=== PATIENT | female | born 1950 | race Caucasian/White ===

== ENCOUNTER 2016-10-16 14:19 | Inpatient (IN) | payer MEDICARE, OTHER ==
[~2016-10-16] VITALS: Ht 165.1 cm; Wt 102.8 kg
[~2016-10-16 14:19] MED LIST: ATOR40TA78 PO; CALC-534 PO; CHOL200074 PO; GABA300C10 PO; LEVO25TA4 PO; MELO15TA24 PO; METO50TA82 PO; NITR0.4T28 SL; OMEG-14 PO; SERT50TA5 PO; VALS320T2 PO; VIT1TABL32 PO; ZOLP5TAB6 PO
[2016-10-16] MEDS ORDERED: SODIUM CHLORIDE 0.9% 1,000ML IVBOLUS ONE (15:00)
[2016-10-16] MEDS ORDERED: SODIUM CHLORIDE FLUSH 10ML SYR IVF ONE (15:00)
[2016-10-16 15:44] LABS: HEMATOCRIT 34.6 % (34.6-47.8); HEMOGLOBIN 11.4 g/dL (11.7-16.4); WHITE BLOOD COUNT 9.8 x10^3/uL (3.4-10)
[2016-10-16 15:57] LABS: ASPARTATE AMINO TRANSFERASE 15 U/L (15-37); BLOOD UREA NITROGEN 39 mg/dL (7-18)
[2016-10-16] MEDS ORDERED: HYDR-3237 PO (16:12)
[2016-10-16] MEDS ORDERED: ONDANSETRON 2MG/ML, 2ML IVPush ONE (16:30)
[2016-10-16] MEDS ORDERED: MORPHINE SULFATE 4 MG/ML, 1ML IVPush PRN (16:30)
[2016-10-16] MEDS ORDERED: MORPHINE SULFATE 4 MG/ML, 1ML ONE (16:38)
[2016-10-16] MEDS ORDERED: ONDANSETRON 2MG/ML, 2ML ONE (16:38)
[2016-10-16] MEDS ORDERED: FAMOTIDINE 20 MG/2 ML ONE (16:54)
[2016-10-16] MEDS ORDERED: MAALOX/HYOSCYAMINE/LIDOCAINE 45 ML BTL ONE (16:54)
[2016-10-16] MEDS ORDERED: MAALOX/HYOSCYAMINE/LIDOCAINE 45 ML BTL PO ONE (17:00)
[2016-10-16] MEDS ORDERED: FAMOTIDINE 20 MG/2 ML IVPush ONE (17:00)
[2016-10-16] MEDS ORDERED: LORazepam 1MG TABLET PO PRN ×4 (18:00)
[2016-10-16] MEDS ORDERED: morphine SULFATE 10 MG/ML, 1ML IVPush PRN (18:00)
[2016-10-16] MEDS ORDERED: LABETALOL 5MG/ML, 20ML IVPush PRN (18:00)
[2016-10-16] MEDS ORDERED: LORazepam 0.5MG TABLET PO PRN (18:00)
[2016-10-16] MEDS ORDERED: POLYETHYLENE GLYCOL 17 GM PACKET PO PRN (18:00)
[2016-10-16] MEDS ORDERED: LORazepam 2 MG/ML, 1ML IV PRN ×5 (18:00)
[2016-10-16] MEDS ORDERED: ONDANSETRON ODT 4 MG PO PRN (18:00)
[2016-10-16] MEDS ORDERED: ONDANSETRON 2MG/ML, 2ML IVPush PRN (18:00)
[2016-10-16 18:02] LABS: HEMATOCRIT 33.2 % (34.6-47.8); HEMOGLOBIN 10.8 g/dL (11.7-16.4); WHITE BLOOD COUNT 8.4 x10^3/uL (3.4-10)
[2016-10-16 18:12] LABS: TOTAL IRON BINDING CAPACITY 311 mcg/dL (250-450)
[2016-10-16 18:21] LABS: IS PT STATUS REG ER OR PRE ER? YES
[2016-10-16] MEDS ORDERED: PANTOPRAZOLE 80 MG in SODIUM CHLORIDE 0.9% 50 ML IV ONE (19:00)
[2016-10-16] MEDS: SODIUM CHLORIDE 0.9% 1,000 ML IV SCH (21:01)
[2016-10-16] MEDS: PANTOPRAZOLE 80 MG in SODIUM CHLORIDE 0.9% 100 ML IV SCH (21:02)
[2016-10-16] MEDS: CHOLECALCIFEROL 1,000 UNIT TABLET PO SCH (22:29)
[2016-10-16] MEDS: GABAPENTIN 300 MG CAPSULE PO SCH (22:29)
[2016-10-16] MEDS: METOPROLOL TARTRATE 50 MG TABLET PO SCH (22:29)
[2016-10-16] MEDS: ATORVASTATIN 40 MG TABLET PO SCH (22:29)
[2016-10-16 22:54] VITALS: BP 175/91
[2016-10-16 23:45] LABS: PATH.CAST-FLAG NOT PRESENT; SPERM-FLAG NOT PRESENT; SRC-FLAG NOT PRESENT; XTAL-FLAG NOT PRESENT; YLC-FLAG NOT PRESENT
[2016-10-16 23:50] LABS: POTASSIUM,URINE RANDOM 18 mmol/L
[2016-10-16 23:51] LABS: IS PT STATUS REG ER OR PRE ER? NO
[2016-10-17 01:12] LABS: OCCBLD OBC PASS
[2016-10-17 02:19] VITALS: BP 110/68
[2016-10-17] MEDS: SODIUM CHLORIDE 0.9% 1,000 ML IV SCH ×3 (02:51→17:50)
[2016-10-17 04:42] LABS: HEMATOCRIT 29.4 % (34.6-47.8); HEMOGLOBIN 9.6 g/dL (11.7-16.4); WHITE BLOOD COUNT 6.7 x10^3/uL (3.4-10)
[2016-10-17 04:59] LABS: BLOOD UREA NITROGEN 29 mg/dL (7-18)
[2016-10-17 05:04] LABS: ASPARTATE AMINO TRANSFERASE 16 U/L (15-37)
[2016-10-17] MEDS: LEVOTHYROXINE 25 MCG TABLET PO SCH (06:02)
[2016-10-17] MEDS: HYDROcodone/APAP 5/325 TABLET PO PRN ×2 (06:08→17:49)
[2016-10-17] MEDS: PANTOPRAZOLE 80 MG in SODIUM CHLORIDE 0.9% 100 ML IV SCH (06:33)
[2016-10-17 07:18] VITALS: BP 154/79
[2016-10-17] MEDS: CHOLECALCIFEROL 1,000 UNIT TABLET PO SCH ×2 (10:09→22:35)
[2016-10-17] MEDS: CALCIUM/VITAMIN D3 250-125 TABLET PO SCH (10:09)
[2016-10-17] MEDS: METOPROLOL TARTRATE 50 MG TABLET PO SCH ×2 (10:09→22:36)
[2016-10-17] MEDS: SENNA/DOCUSATE TABLET PO SCH (10:10)
[2016-10-17] MEDS: GABAPENTIN 300 MG CAPSULE PO SCH ×2 (10:10→22:36)
[2016-10-17] MEDS: SERTRALINE 50MG TABLET PO SCH (10:10)
[2016-10-17] MEDS: NITROGLYCERIN 0.4 MG BOTTLE (25 TABS) SL SCH (10:11)
[2016-10-17] MEDS: TEMPLATE NON-FORMULARY MED. (Vit A,C & E/Lutein/Minerals** (Ocuvite Tablet**) 1 TAB) PO SCH (10:11)
[2016-10-17 12:16] VITALS: BP 132/73
[2016-10-17] MEDS: PANTOPROZOLE 40MG TABLET PO SCH ×2 (12:32→22:37)
[2016-10-17 20:06] VITALS: BP 167/78
[2016-10-17] MEDS: ATORVASTATIN 40 MG TABLET PO SCH (22:37)
[2016-10-18 01:28] VITALS: BP 157/93
[2016-10-18] MEDS: SODIUM CHLORIDE 0.9% 1,000 ML IV SCH ×2 (03:37→14:16)
[2016-10-18 05:42] LABS: HEMATOCRIT 29.7 % (34.6-47.8); HEMOGLOBIN 9.7 g/dL (11.7-16.4); WHITE BLOOD COUNT 6.4 x10^3/uL (3.4-10)
[2016-10-18 05:56] LABS: ASPARTATE AMINO TRANSFERASE 20 U/L (15-37); BLOOD UREA NITROGEN 18 mg/dL (7-18)
[2016-10-18] MEDS: LEVOTHYROXINE 25 MCG TABLET PO SCH (06:12)
[2016-10-18] MEDS: HYDROcodone/APAP 5/325 TABLET PO PRN ×3 (06:17→21:58)
[2016-10-18 07:30] VITALS: BP 150/88
[2016-10-18] MEDS: PANTOPROZOLE 40MG TABLET PO SCH ×2 (07:59→21:58)
[2016-10-18] MEDS: METOPROLOL TARTRATE 50 MG TABLET PO SCH ×2 (07:59→21:00)
[2016-10-18] MEDS: CHOLECALCIFEROL 1,000 UNIT TABLET PO SCH ×2 (07:59→21:57)
[2016-10-18] MEDS: GABAPENTIN 300 MG CAPSULE PO SCH ×2 (07:59→21:58)
[2016-10-18] MEDS: CALCIUM/VITAMIN D3 250-125 TABLET PO SCH (07:59)
[2016-10-18] MEDS: NITROGLYCERIN 0.4 MG BOTTLE (25 TABS) SL SCH (08:00)
[2016-10-18] MEDS: SERTRALINE 50MG TABLET PO SCH (08:00)
[2016-10-18] MEDS: SENNA/DOCUSATE TABLET PO SCH (08:00)
[2016-10-18] MEDS: TEMPLATE NON-FORMULARY MED. (Vit A,C & E/Lutein/Minerals** (Ocuvite Tablet**) 1 TAB) PO SCH (08:01)
[2016-10-18 14:18] VITALS: BP 148/86
[2016-10-18] MEDS ORDERED: POTASSIUM CHLORIDE 20 MEQ, MAGNESIUM SULFATE 1 GM, FOLIC ACID 1 MG, THIAMINE 100 MG, MV... IV SCH (15:30)
[2016-10-18 20:10] VITALS: BP 168/81
[2016-10-18] MEDS: ATORVASTATIN 40 MG TABLET PO SCH (21:58)
[2016-10-18] MEDS ORDERED: ZOLPIDEM 5MG TABLET PO ONE (22:00)
[2016-10-19 01:47] VITALS: BP 170/91
[2016-10-19] MEDS: SODIUM CHLORIDE 0.9% 1,000 ML IV SCH ×2 (01:58→12:36)
[2016-10-19 05:30] LABS: HEMATOCRIT 30.7 % (34.6-47.8); HEMOGLOBIN 10.1 g/dL (11.7-16.4); WHITE BLOOD COUNT 6.8 x10^3/uL (3.4-10)
[2016-10-19] MEDS: LEVOTHYROXINE 25 MCG TABLET PO SCH (05:30)
[2016-10-19] MEDS: HYDROcodone/APAP 5/325 TABLET PO PRN ×2 (05:34→10:29)
[2016-10-19 05:57] LABS: ASPARTATE AMINO TRANSFERASE 15 U/L (15-37); BLOOD UREA NITROGEN 14 mg/dL (7-18)
[2016-10-19 06:38] VITALS: BP 156/75
[2016-10-19] MEDS: GABAPENTIN 300 MG CAPSULE PO SCH (08:04)
[2016-10-19] MEDS: NITROGLYCERIN 0.4 MG BOTTLE (25 TABS) SL SCH (08:05)
[2016-10-19] MEDS: SENNA/DOCUSATE TABLET PO SCH (08:05)
[2016-10-19] MEDS: CHOLECALCIFEROL 1,000 UNIT TABLET PO SCH (08:05)
[2016-10-19] MEDS: PANTOPROZOLE 40MG TABLET PO SCH (08:05)
[2016-10-19] MEDS: METOPROLOL TARTRATE 50 MG TABLET PO SCH (08:05)
[2016-10-19] MEDS: SERTRALINE 50MG TABLET PO SCH (08:05)
[2016-10-19] MEDS: TEMPLATE NON-FORMULARY MED. (Vit A,C & E/Lutein/Minerals** (Ocuvite Tablet**) 1 TAB) PO SCH (08:05)
[2016-10-19] MEDS: CALCIUM/VITAMIN D3 250-125 TABLET PO SCH (08:05)
[2016-10-19] MEDS ORDERED: THIA100T10 PO (09:43)
[2016-10-19] MEDS ORDERED: FOLI-17 PO (09:44)
[2016-10-19 12:50] VITALS: BP 170/73
== END 2016-10-19 14:40 | disposition home or self-care (01) | DRG 682 ==
LOC: ED 16:21 → EDIP 16:50 → 4WST 18:45
PROVIDERS: ADMIT Hospitalist; ATTEND Hospitalist
DX: N17.0 Acute kidney failure with tubular necrosis (principal); E43 Unspecified severe protein-calorie malnutrition; E87.2 Acidosis; K29.20 Alcoholic gastritis without bleeding; D53.9 Nutritional anemia, unspecified; F10.20 Alcohol dependence, uncomplicated; Z68.37 Body mass index [BMI] 37.0-37.9, adult; E03.9 Hypothyroidism, unspecified; E78.5 Hyperlipidemia, unspecified; F17.210 Nicotine dependence, cigarettes, uncomplicated; I10 Essential (primary) hypertension; I25.10 Atherosclerotic heart disease of native coronary artery without angina pectoris; K21.9 Gastro-esophageal reflux disease without esophagitis; K76.0 Fatty (change of) liver, not elsewhere classified; G62.9 Polyneuropathy, unspecified; G89.29 Other chronic pain; M54.30 Sciatica, unspecified side; E83.42 Hypomagnesemia; Z88.0 Allergy status to penicillin; Z80.8 Family history of malignant neoplasm of other organs or systems; Z83.3 Family history of diabetes mellitus; Z90.49 Acquired absence of other specified parts of digestive tract; Z66 Do not resuscitate
CPT/HCPCS: 36415; 76700; 80053; 81001; 82272; 82436; 82570; 82607; 82728; 82746; 83036; 83540; 83550; 83690; 83735; 84100; 84133; 84300; 84439; 84443; 84484; 85025; 85610; 85651; 87086; 87324; 96361; 96374; J3411; J3475; J3480; J7042; C9113; J7030; S0028

== ENCOUNTER 2017-03-01 05:42 | Inpatient (IN) | payer MEDICARE, OTHER ==
[~2017-03-01] VITALS: Ht 165.1 cm; Wt 98.6 kg
[~2017-03-01 05:42] MED LIST changes: +FOLI-17 PO; +HYDR-3237 PO; +THIA100T10 PO
[2017-03-01] MEDS ORDERED: ONDANSETRON 2MG/ML, 2ML ONE (05:47)
[2017-03-01] MEDS ORDERED: SODIUM CHLORIDE FLUSH 10ML SYR IVF ONE (06:00)
[2017-03-01] MEDS ORDERED: hydrALAzine 20 MG/ML, 1ML ONE (06:06)
[2017-03-01 06:21] LABS: BASOPHILS # (AUTO) 0.04 x10^3/uL (0-0.1); BASOPHILS % (AUTO) 0 % (0-1); EOSINOPHILS # (AUTO) 0.29 x10^3/uL (0-0.4); EOSINOPHILS % (AUTO) 3 % (1-7); LYMPHOCYTES # (AUTO) 2.33 x10^3/uL (1-3.4); LYMPHOCYTES % (AUTO) 24 % (22-44); MD NO; MONOCYTES # (AUTO) 0.94 x10^3/uL (0.2-0.8); MONOCYTES % (AUTO) 10 % (2-9); NEUTROPHILS # (AUTO) 6.13 x10^3/uL (1.8-6.8); NEUTROPHILS % (AUTO) 63 % (42-75); PLATELET COUNT 320 x10^3/uL (130-400)
[2017-03-01] MEDS ORDERED: FENTANYL PF 100 MCG/2ML ONE (06:25)
[2017-03-01 06:28] LABS: INTERNATIONAL NORMALIZED RATIO 0.94 (0.93-1.1); PROTHROMBIN TIME 9.8 Seconds (9.6-11.5)
[2017-03-01] MEDS ORDERED: hydrALAzine 20 MG/ML, 1ML IV ONE ×2 (06:30→07:00)
[2017-03-01] MEDS ORDERED: ONDANSETRON 2MG/ML, 2ML IVPush ONE (06:30)
[2017-03-01 06:32] LABS: ALBUMIN 3.6 g/dL (3.4-5.0); ANION GAP 10 mmol/L (5-15); CALCIUM 9.3 mg/dL (8.5-10.1); CHLORIDE 109 mmol/L (98-107)
[2017-03-01 06:35] LABS: TROPONIN I < 0.015 ng/mL (0.000-0.045)
[2017-03-01] MEDS ORDERED: VIT1TABL32 PO (06:43)
[2017-03-01] MEDS ORDERED: OMEG-14 PO (06:43)
[2017-03-01] MEDS ORDERED: LEVO25TA4 PO (06:43)
[2017-03-01] MEDS ORDERED: GABA300C10 PO (06:43)
[2017-03-01] MEDS ORDERED: CHOL2000 PO (06:43)
[2017-03-01] MEDS ORDERED: CA C1TAB35 PO (06:43)
[2017-03-01] MEDS ORDERED: OMEP-110 PO (06:43)
[2017-03-01] MEDS ORDERED: ATOR40TA78 PO (06:43)
[2017-03-01] MEDS ORDERED: HYDR-3237 PO (06:43)
[2017-03-01] MEDS ORDERED: SERT50TA PO (06:43)
[2017-03-01] MEDS ORDERED: VALS320T2 PO (06:43)
[2017-03-01] MEDS ORDERED: FOLI0.8T2 PO (06:43)
[2017-03-01] MEDS ORDERED: METO50TA82 PO (06:43)
[2017-03-01] MEDS ORDERED: SUCCINYLCHOLINE 20 MG/ML, 10ML IVPush ONE (07:00)
[2017-03-01] MEDS ORDERED: FENTANYL PF 100 MCG/2ML IV ONE (07:00)
[2017-03-01] MEDS ORDERED: MIDAZOLAM 1 MG/ML, 5ML IVPush ONE (07:00)
[2017-03-01] MEDS ORDERED: PROPOFOL 100 ML IV PRN ×2 (07:00→11:10)
[2017-03-01] MEDS ORDERED: ETOMIDATE 20 MG/10 ML IVPush ONE (07:00)
[2017-03-01] MEDS ORDERED: CEFTRIAXONE PMX 1GM/50ML 50 ML IVPB ONE (08:30)
[2017-03-01] MEDS ORDERED: BACITRACIN 50,000 UNIT ONE (09:20)
[2017-03-01] MEDS ORDERED: EPINEPHRINE 1 MG/ML, 1ML ONE (09:20)
[2017-03-01] MEDS ORDERED: BUPIVACAINE/PF 0.5% ONE (09:20)
[2017-03-01] MEDS ORDERED: THROMBIN 5,000 UNIT VIAL TP ONE (09:20)
[2017-03-01] MEDS ORDERED: OMNIPAQUE 350 MG/ML, 100ML BOTTLE ONE (09:23)
[2017-03-01] MEDS ORDERED: FENTANYL PF 250 MCG/5ML ONE (09:25)
[2017-03-01] MEDS ORDERED: THROMBIN 20,000 UNIT VIAL TP ONE (09:28)
[2017-03-01 09:33] VITALS: BP 113/64
[2017-03-01] MEDS ORDERED: CEFAZOLIN 1,000 MG ONE (09:40)
[2017-03-01] MEDS ORDERED: SODIUM CHLORIDE 0.9% 1,000 ML IV SCH (09:44)
[2017-03-01] MEDS ORDERED: ONDANSETRON 2MG/ML, 2ML IVPush PRN (10:00)
[2017-03-01] MEDS ORDERED: LABETALOL 5MG/ML, 20ML IVPush PRN (10:00)
[2017-03-01] MEDS ORDERED: morphine SULFATE 10 MG/ML, 1ML IVPush PRN (10:00)
[2017-03-01] MEDS ORDERED: POLYETHYLENE GLYCOL 17 GM PACKET PO PRN (10:00)
[2017-03-01] MEDS ORDERED: LORazepam 2 MG/ML, 1ML IVPush PRN (10:00)
[2017-03-01] MEDS ORDERED: PROPOFOL 10 MG/ML, 20ML ONE ×2 (11:19)
[2017-03-01] MEDS ORDERED: ROCURONIUM 10 MG/ML,10ML ONE (11:19)
[2017-03-01] MEDS ORDERED: ETOMIDATE 40 MG/20 ML ONE (11:19)
[2017-03-01] MEDS ORDERED: MIDAZOLAM 1 MG/ML, 5ML ONE (11:19)
[2017-03-01] MEDS ORDERED: LIDOCAINE-MPF 1%, 2ML ENDO PRN (11:30)
[2017-03-01] MEDS ORDERED: SENNA/DOCUSATE TABLET NG PRN (11:30)
[2017-03-01] MEDS ORDERED: BISACODYL 10 MG SUPP PR PRN (11:30)
[2017-03-01] MEDS ORDERED: LACTULOSE 20 GM/30 ML UDC NG PRN (11:30)
[2017-03-01] MEDS ORDERED: PHARMACY MAY ADJ FOR RENAL FX MC SCH (11:30)
[2017-03-01] MEDS ORDERED: SENNOSIDES 8.8 MG/5 ML ORAL SOL NG PRN (11:30)
[2017-03-01] MEDS ORDERED: CEFTRIAXONE PMX 1GM/50ML 50 ML IV SCH (12:00)
[2017-03-01] MEDS: ALBUTEROL/IPRATROPIUM 2.5MG/0.5MG, 3 ML INLINE SCH ×4 (12:00→23:30)
[2017-03-01] MEDS: PROPOFOL 100 ML IV PRN ×3 (14:27→22:41)
[2017-03-01] MEDS: D5%-0.9% NACL+KCL 20MEQ 1,000 ML IV SCH (14:27)
[2017-03-01] MEDS: METRONIDAZOLE PMX 500MG/100ML 100 ML IV SCH ×2 (14:32→21:14)
[2017-03-01] MEDS: CEFTRIAXONE 1,000 MG in DEXTROSE 5% 50 ML IV SCH (16:26)
[2017-03-01] MEDS: GABAPENTIN 300 MG CAPSULE PO SCH (21:15)
[2017-03-01] MEDS: FAMOTIDINE 20 MG/2 ML IVPush SCH (21:15)
[2017-03-01] MEDS: ATORVASTATIN 40 MG TABLET PO SCH (21:15)
[2017-03-01] MEDS: METOPROLOL TARTRATE 50 MG TABLET PO SCH (21:16)
[2017-03-02] MEDS: PROPOFOL 100 ML IV PRN ×4 (02:20→18:35)
[2017-03-02] MEDS: ALBUTEROL/IPRATROPIUM 2.5MG/0.5MG, 3 ML INLINE SCH ×6 (03:30→22:45)
[2017-03-02 04:33] LABS: BASOPHILS # (AUTO) 0.01 x10^3/uL (0-0.1); BASOPHILS % (AUTO) 0 % (0-1); EOSINOPHILS % (AUTO) 0 % (1-7); LYMPHOCYTES # (AUTO) 0.52 x10^3/uL (1-3.4); LYMPHOCYTES % (AUTO) 4 % (22-44); MD NO; MEAN CORPUSCULAR HEMOGLOBIN 32.7 pg (27.0-34.8); MEAN CORPUSCULAR HGB CONC 33.4 g/dL (32.4-35.8); MEAN CORPUSCULAR VOLUME 97.8 fL (80-100); MEAN PLATELET VOLUME 7.7 fL (7.4-10.4); MONOCYTES # (AUTO) 1.35 x10^3/uL (0.2-0.8); MONOCYTES % (AUTO) 10 % (2-9); NEUTROPHILS # (AUTO) 11.99 x10^3/uL (1.8-6.8); NEUTROPHILS % (AUTO) 86 % (42-75); PLATELET COUNT 258 x10^3/uL (130-400); RED BLOOD COUNT 3.22 x10^6/uL (3.82-5.3); RED CELL DISTRIBUTION WIDTH 15.8 % (9.6-15.2)
[2017-03-02 04:49] LABS: ALANINE AMINOTRANSFERASE 19 U/L (12-78); ALBUMIN 2.7 g/dL (3.4-5.0); ANION GAP 9 mmol/L (5-15); CALCIUM 7.4 mg/dL (8.5-10.1); CHLORIDE 112 mmol/L (98-107); CREATININE 1.01 mg/dL (0.55-1.02)
[2017-03-02 04:52] LABS: ALKALINE PHOSPHATASE 64 U/L (45-117); BILIRUBIN,TOTAL 0.3 mg/dL (0.2-1.0)
[2017-03-02] MEDS: METRONIDAZOLE PMX 500MG/100ML 100 ML IV SCH ×3 (05:33→20:27)
[2017-03-02] MEDS: D5%-0.9% NACL+KCL 20MEQ 1,000 ML IV SCH (05:35)
[2017-03-02] MEDS: ACETAMINOPHEN 325 MG TABLET PO PRN ×2 (06:17→13:12)
[2017-03-02] MEDS: METOPROLOL TARTRATE 50 MG TABLET PO SCH ×2 (09:00→21:13)
[2017-03-02] MEDS: VALSARTAN 320 MG TABLET PO SCH (09:00)
[2017-03-02] MEDS ORDERED: MAGNESIUM SULFATE PMX 4GM/100M 100 ML IVPB ONE (09:00)
[2017-03-02] MEDS: LEVOTHYROXINE 25 MCG TABLET PO SCH (09:12)
[2017-03-02] MEDS: SENNA/DOCUSATE TABLET PO SCH (09:12)
[2017-03-02] MEDS: FAMOTIDINE 20 MG/2 ML IVPush SCH ×2 (09:12→21:13)
[2017-03-02] MEDS: GABAPENTIN 300 MG CAPSULE PO SCH ×2 (09:12→21:13)
[2017-03-02] MEDS: SERTRALINE 50MG TABLET PO SCH (09:13)
[2017-03-02] MEDS: FENTANYL PF 100 MCG/2ML IVPush PRN (15:11)
[2017-03-02] MEDS: CEFTRIAXONE 1,000 MG in DEXTROSE 5% 50 ML IV SCH (15:14)
[2017-03-02] MEDS ORDERED: SODIUM CHLORIDE 0.9% 1,000ML IVBOLUS ONE (15:30)
[2017-03-02] MEDS ORDERED: NOREPINEPHRINE 4 MG in SODIUM CHLORIDE 0.9% 246 ML IV PRN (16:00)
[2017-03-02] MEDS: ATORVASTATIN 40 MG TABLET PO SCH (21:13)
[2017-03-03] MEDS: PROPOFOL 100 ML IV PRN ×5 (00:31→23:48)
[2017-03-03] MEDS: D5%-0.9% NACL+KCL 20MEQ 1,000 ML IV SCH ×2 (00:31→13:00)
[2017-03-03] MEDS: SODIUM CHLORIDE 0.9% 1,000ML IVBOLUS PRN (01:03)
[2017-03-03] MEDS: ALBUTEROL/IPRATROPIUM 2.5MG/0.5MG, 3 ML INLINE SCH ×6 (02:54→22:59)
[2017-03-03 04:48] LABS: BASOPHILS # (AUTO) 0.02 x10^3/uL (0-0.1); BASOPHILS % (AUTO) 0 % (0-1); EOSINOPHILS # (AUTO) 0.02 x10^3/uL (0-0.4); EOSINOPHILS % (AUTO) 0 % (1-7); LYMPHOCYTES # (AUTO) 0.49 x10^3/uL (1-3.4); LYMPHOCYTES % (AUTO) 5 % (22-44); MD NO; MEAN CORPUSCULAR HEMOGLOBIN 32.3 pg (27.0-34.8); MEAN CORPUSCULAR HGB CONC 33.4 g/dL (32.4-35.8); MEAN CORPUSCULAR VOLUME 96.8 fL (80-100); MEAN PLATELET VOLUME 8.1 fL (7.4-10.4); MONOCYTES # (AUTO) 0.88 x10^3/uL (0.2-0.8); MONOCYTES % (AUTO) 9 % (2-9); NEUTROPHILS # (AUTO) 8.79 x10^3/uL (1.8-6.8); NEUTROPHILS % (AUTO) 86 % (42-75); PLATELET COUNT 208 x10^3/uL (130-400); RED CELL DISTRIBUTION WIDTH 16.1 % (9.6-15.2)
[2017-03-03 05:00] LABS: CHLORIDE 115 mmol/L (98-107)
[2017-03-03] MEDS: METRONIDAZOLE PMX 500MG/100ML 100 ML IV SCH ×3 (05:03→20:31)
[2017-03-03 05:05] LABS: ANION GAP 7 mmol/L (5-15); CALCIUM 7.7 mg/dL (8.5-10.1); CREATININE 0.81 mg/dL (0.55-1.02)
[2017-03-03] MEDS ORDERED: POTASSIUM PHOSPHATE 44 MEQ in SODIUM CHLORIDE 0.9% 500 ML IV ONE (07:30)
[2017-03-03] MEDS: VALSARTAN 320 MG TABLET PO SCH (09:00)
[2017-03-03] MEDS: FAMOTIDINE 20 MG/2 ML IVPush SCH ×2 (09:17→20:58)
[2017-03-03] MEDS: SERTRALINE 50MG TABLET PO SCH (09:17)
[2017-03-03] MEDS: GABAPENTIN 300 MG CAPSULE PO SCH ×2 (09:17→20:58)
[2017-03-03] MEDS: METOPROLOL TARTRATE 50 MG TABLET PO SCH ×2 (09:18→20:58)
[2017-03-03] MEDS: LEVOTHYROXINE 25 MCG TABLET PO SCH (09:18)
[2017-03-03] MEDS: SENNA/DOCUSATE TABLET PO SCH (09:19)
[2017-03-03] MEDS: CEFTRIAXONE 1,000 MG in DEXTROSE 5% 50 ML IV SCH (16:03)
[2017-03-03] MEDS: DIAZEPAM 5 MG/ML, 2ML IV SCH ×2 (16:30→20:31)
[2017-03-03] MEDS: ATORVASTATIN 40 MG TABLET PO SCH (20:58)
[2017-03-04] MEDS: SODIUM CHLORIDE 0.9% 1,000ML IVBOLUS PRN (00:14)
[2017-03-04] MEDS: DIAZEPAM 5 MG/ML, 2ML IV SCH ×6 (00:50→20:38)
[2017-03-04] MEDS: ALBUTEROL/IPRATROPIUM 2.5MG/0.5MG, 3 ML INLINE SCH ×6 (02:30→22:26)
[2017-03-04] MEDS: D5%-0.9% NACL+KCL 20MEQ 1,000 ML IV SCH ×2 (02:33→15:51)
[2017-03-04] MEDS: METRONIDAZOLE PMX 500MG/100ML 100 ML IV SCH (04:30)
[2017-03-04 04:36] LABS: BASOPHILS # (AUTO) 0.03 x10^3/uL (0-0.1); BASOPHILS % (AUTO) 0 % (0-1); EOSINOPHILS % (AUTO) 1 % (1-7); LYMPHOCYTES # (AUTO) 0.77 x10^3/uL (1-3.4); LYMPHOCYTES % (AUTO) 8 % (22-44); MD NO; MEAN CORPUSCULAR HEMOGLOBIN 32.5 pg (27.0-34.8); MEAN CORPUSCULAR HGB CONC 33.1 g/dL (32.4-35.8); MEAN CORPUSCULAR VOLUME 98.2 fL (80-100); MEAN PLATELET VOLUME 8.2 fL (7.4-10.4); MONOCYTES # (AUTO) 0.77 x10^3/uL (0.2-0.8); MONOCYTES % (AUTO) 8 % (2-9); NEUTROPHILS % (AUTO) 84 % (42-75); PLATELET COUNT 222 x10^3/uL (130-400); RED BLOOD COUNT 2.74 x10^6/uL (3.82-5.3); RED CELL DISTRIBUTION WIDTH 15.9 % (9.6-15.2)
[2017-03-04 04:46] LABS: ANION GAP 8 mmol/L (5-15); CALCIUM 7.9 mg/dL (8.5-10.1); CHLORIDE 118 mmol/L (98-107); CREATININE 0.78 mg/dL (0.55-1.02); TRIGLYCERIDES 56 mg/dL (50-200)
[2017-03-04] MEDS: PROPOFOL 100 ML IV PRN (05:36)
[2017-03-04] MEDS: ENALAPRILAT 1.25 MG/ML, 2ML IVPush PRN ×2 (08:09→22:35)
[2017-03-04] MEDS ORDERED: BACITRACIN ZINC OINT 500U/GM, 0.9 GM TP ONE (09:00)
[2017-03-04] MEDS: SENNA/DOCUSATE TABLET PO SCH (10:09)
[2017-03-04] MEDS: VALSARTAN 320 MG TABLET PO SCH (10:09)
[2017-03-04] MEDS: FAMOTIDINE 20 MG/2 ML IVPush SCH ×2 (10:09→20:37)
[2017-03-04] MEDS: LEVOTHYROXINE 25 MCG TABLET PO SCH (10:10)
[2017-03-04] MEDS: GABAPENTIN 300 MG CAPSULE PO SCH ×2 (10:10→20:37)
[2017-03-04] MEDS: METOPROLOL TARTRATE 50 MG TABLET PO SCH (10:10)
[2017-03-04] MEDS: SERTRALINE 50MG TABLET PO SCH (10:10)
[2017-03-04] MEDS: METOPROLOL TARTRATE 25 MG TABLET PO SCH (20:38)
[2017-03-04] MEDS: ATORVASTATIN 40 MG TABLET PO SCH (20:40)
[2017-03-05] MEDS: DIAZEPAM 5 MG/ML, 2ML IV SCH ×5 (00:48→17:14)
[2017-03-05] MEDS: ALBUTEROL/IPRATROPIUM 2.5MG/0.5MG, 3 ML INLINE SCH ×6 (02:29→23:34)
[2017-03-05] MEDS: FENTANYL PF 100 MCG/2ML IVPush PRN ×2 (03:13→09:05)
[2017-03-05] MEDS: D5%-0.9% NACL+KCL 20MEQ 1,000 ML IV SCH ×2 (03:24→17:14)
[2017-03-05 04:37] LABS: BASOPHILS # (AUTO) 0.02 x10^3/uL (0-0.1); BASOPHILS % (AUTO) 0 % (0-1); EOSINOPHILS # (AUTO) 0.17 x10^3/uL (0-0.4); EOSINOPHILS % (AUTO) 2 % (1-7); LYMPHOCYTES # (AUTO) 0.53 x10^3/uL (1-3.4); LYMPHOCYTES % (AUTO) 7 % (22-44); MD NO; MEAN CORPUSCULAR HEMOGLOBIN 32.4 pg (27.0-34.8); MEAN PLATELET VOLUME 7.9 fL (7.4-10.4); MONOCYTES # (AUTO) 0.78 x10^3/uL (0.2-0.8); MONOCYTES % (AUTO) 10 % (2-9); NEUTROPHILS # (AUTO) 6.29 x10^3/uL (1.8-6.8); NEUTROPHILS % (AUTO) 81 % (42-75); PLATELET COUNT 256 x10^3/uL (130-400); RED BLOOD COUNT 2.63 x10^6/uL (3.82-5.3); RED CELL DISTRIBUTION WIDTH 15.6 % (9.6-15.2)
[2017-03-05 04:46] LABS: ANION GAP 9 mmol/L (5-15); CALCIUM 8.3 mg/dL (8.5-10.1); CHLORIDE 117 mmol/L (98-107)
[2017-03-05 04:52] LABS: CLOSTRIDIUM DIFFICILE ANTIGEN NEGATIVE; CLOSTRIDIUM DIFFICILE TOXIN NEGATIVE (Negative)
[2017-03-05] MEDS ORDERED: AMIODARONE 150 MG in DEXTROSE 5% 100 ML IV ONE (09:00)
[2017-03-05] MEDS ORDERED: FILTER 0.22 MICRON IV PRN (09:00)
[2017-03-05] MEDS: SENNA/DOCUSATE TABLET PO SCH (09:00)
[2017-03-05] MEDS ORDERED: AMIODARONE 900 MG in DEXTROSE 5% 482 ML IV PRN (09:00)
[2017-03-05] MEDS: VALSARTAN 320 MG TABLET PO SCH (09:00)
[2017-03-05 09:03] LABS: RED BLOOD COUNT 3.82 x10^6/uL (3.82-5.3)
[2017-03-05 09:04] LABS: MEAN CORPUSCULAR HEMOGLOBIN 32.8 pg (27.0-34.8); MEAN CORPUSCULAR VOLUME 96.5 fL (80-100); RED CELL DISTRIBUTION WIDTH 15.3 % (9.6-15.2)
[2017-03-05] MEDS: FENTANYL 25 MCG PATCH TD SCH (09:04)
[2017-03-05 09:05] LABS: CREATININE 1.11 mg/dL (0.55-1.02)
[2017-03-05] MEDS ORDERED: PHENYLEPHRINE 10 MG/ML ONE (09:40)
[2017-03-05] MEDS ORDERED: PROPOFOL 10 MG/ML, 50ML ONE (09:40)
[2017-03-05] MEDS ORDERED: CEFAZOLIN 1,000 MG ONE (09:40)
[2017-03-05] MEDS: FAMOTIDINE 20 MG/2 ML IVPush SCH ×2 (10:03→20:51)
[2017-03-05] MEDS: SERTRALINE 50MG TABLET PO SCH (10:05)
[2017-03-05] MEDS: METOPROLOL TARTRATE 50 MG TABLET PO SCH (10:05)
[2017-03-05] MEDS: GABAPENTIN 300 MG CAPSULE PO SCH ×2 (10:05→22:07)
[2017-03-05] MEDS: LEVOTHYROXINE 25 MCG TABLET PO SCH (10:05)
[2017-03-05] MEDS: CHOLESTYRAMINE LIGHT 4GM PACKET PO SCH ×2 (11:23→20:51)
[2017-03-05] MEDS: DIAZEPAM 5 MG/ML, 10ML VIAL IV SCH (22:07)
[2017-03-05] MEDS: ATORVASTATIN 40 MG TABLET PO SCH (22:07)
[2017-03-05] MEDS: METOPROLOL TARTRATE 25 MG TABLET PO SCH (22:07)
[2017-03-06] MEDS: ALBUTEROL/IPRATROPIUM 2.5MG/0.5MG, 3 ML INLINE SCH ×6 (02:56→23:09)
[2017-03-06] MEDS: DIAZEPAM 5 MG/ML, 10ML VIAL IV SCH ×4 (03:30→09:31)
[2017-03-06 05:30] LABS: ANION GAP 10 mmol/L (5-15); CALCIUM 8.2 mg/dL (8.5-10.1); CHLORIDE 114 mmol/L (98-107); CREATININE 0.73 mg/dL (0.55-1.02)
[2017-03-06 05:36] LABS: MEAN CORPUSCULAR HEMOGLOBIN 32.5 pg (27.0-34.8); MEAN CORPUSCULAR HGB CONC 33.6 g/dL (32.4-35.8); MEAN CORPUSCULAR VOLUME 96.7 fL (80-100); MEAN PLATELET VOLUME 7.8 fL (7.4-10.4); PLATELET COUNT 260 x10^3/uL (130-400); RED BLOOD COUNT 2.69 x10^6/uL (3.82-5.3); RED CELL DISTRIBUTION WIDTH 15.6 % (9.6-15.2)
[2017-03-06 05:55] LABS: BASOPHILS # (AUTO) 0.03 x10^3/uL (0-0.1); BASOPHILS % (AUTO) 0 % (0-1); EOSINOPHILS # (AUTO) 0.16 x10^3/uL (0-0.4); EOSINOPHILS % (AUTO) 2 % (1-7); LYMPHOCYTES # (AUTO) 0.62 x10^3/uL (1-3.4); LYMPHOCYTES % (AUTO) 6 % (22-44); MD SCAN; MONOCYTES # (AUTO) 1.11 x10^3/uL (0.2-0.8); MONOCYTES % (AUTO) 11 % (2-9); NEUTROPHILS # (AUTO) 8.27 x10^3/uL (1.8-6.8); NEUTROPHILS % (AUTO) 81 % (42-75)
[2017-03-06] MEDS: SENNA/DOCUSATE TABLET PO SCH (09:00)
[2017-03-06] MEDS ORDERED: FUROSEMIDE 20 MG/2 ML IV ONE (09:30)
[2017-03-06] MEDS: LEVOTHYROXINE 25 MCG TABLET PO SCH (10:03)
[2017-03-06] MEDS: AMIODARONE 200 MG TABLET PO SCH ×2 (10:03→21:02)
[2017-03-06] MEDS: FAMOTIDINE 20 MG/2 ML IVPush SCH (10:04)
[2017-03-06] MEDS: VALSARTAN 320 MG TABLET PO SCH (10:04)
[2017-03-06] MEDS: METOPROLOL TARTRATE 50 MG TABLET PO SCH (10:04)
[2017-03-06] MEDS: SERTRALINE 50MG TABLET PO SCH (10:04)
[2017-03-06] MEDS: GABAPENTIN 300 MG CAPSULE PO SCH ×2 (10:04→21:02)
[2017-03-06] MEDS: CHOLESTYRAMINE LIGHT 4GM PACKET PO SCH ×2 (10:05→21:03)
[2017-03-06] MEDS: ACETAMINOPHEN 325 MG TABLET PO PRN (17:02)
[2017-03-06] MEDS: ATORVASTATIN 40 MG TABLET PO SCH (21:02)
[2017-03-06] MEDS: METOPROLOL TARTRATE 25 MG TABLET PO SCH (21:02)
[2017-03-06] MEDS: FAMOTIDINE 40 MG/5 ML ORAL SUSP NG SCH (21:03)
[2017-03-07] MEDS: ALBUTEROL/IPRATROPIUM 2.5MG/0.5MG, 3 ML INLINE SCH ×6 (02:40→23:20)
[2017-03-07 04:25] LABS: MEAN CORPUSCULAR HEMOGLOBIN 32.3 pg (27.0-34.8); MEAN CORPUSCULAR HGB CONC 33.6 g/dL (32.4-35.8); MEAN PLATELET VOLUME 7.5 fL (7.4-10.4); PLATELET COUNT 299 x10^3/uL (130-400); RED CELL DISTRIBUTION WIDTH 15.5 % (9.6-15.2)
[2017-03-07 04:33] LABS: ANION GAP 10 mmol/L (5-15); CALCIUM 8.2 mg/dL (8.5-10.1); CHLORIDE 111 mmol/L (98-107); CREATININE 0.76 mg/dL (0.55-1.02); TRIGLYCERIDES 82 mg/dL (50-200)
[2017-03-07 04:46] LABS: MD YES
[2017-03-07 04:49] LABS: <PLATELET ESTIMATE> ADEQUATE; <PLT MORPHOLOGY> NORMAL PLT MORPH; <RBC MORPHOLOGY> NORMAL; BANDS%(MANUAL) 3 % (0-7); EOS#(MANUAL) 0.13 x10^3/uL (0.0-0.4); EOS% (MANUAL) 1 % (1-7); LYMPH#(MANUAL) 0.92 x10^3/uL (1-3.4); LYMPHS% (MANUAL) 7 % (22-44); MONOS#(MANUAL) 1.72 x10^3/uL (0.3-2.7); MONOS% (MANUAL) 13 % (2-9); MYELOCYTES# (MANUAL) 0.13 x10^3/uL (0-0); MYELOCYTES% (MANUAL) 1 % (0-0); SEGS% (MANUAL) 75 % (42-75)
[2017-03-07] MEDS ORDERED: MAGNESIUM SULFATE PMX 4GM/100M 100 ML IV ONE (07:30)
[2017-03-07] MEDS: LEVOTHYROXINE 25 MCG TABLET PO SCH (09:47)
[2017-03-07] MEDS: AMIODARONE 200 MG TABLET PO SCH ×2 (09:47→21:24)
[2017-03-07] MEDS: SENNA/DOCUSATE TABLET PO SCH (09:47)
[2017-03-07] MEDS: GABAPENTIN 300 MG CAPSULE PO SCH ×2 (09:47→21:24)
[2017-03-07] MEDS: SERTRALINE 50MG TABLET PO SCH (09:47)
[2017-03-07] MEDS: METOPROLOL TARTRATE 50 MG TABLET PO SCH (09:47)
[2017-03-07] MEDS: FAMOTIDINE 40 MG/5 ML ORAL SUSP NG SCH ×2 (09:48→21:46)
[2017-03-07] MEDS: VALSARTAN 320 MG TABLET PO SCH (09:48)
[2017-03-07] MEDS: CHOLESTYRAMINE LIGHT 4GM PACKET PO SCH ×2 (11:09→21:24)
[2017-03-07] MEDS: METOPROLOL TARTRATE 25 MG TABLET PO SCH (21:24)
[2017-03-07] MEDS: ATORVASTATIN 40 MG TABLET PO SCH (21:24)
[2017-03-08] MEDS: ALBUTEROL/IPRATROPIUM 2.5MG/0.5MG, 3 ML INLINE SCH ×6 (03:01→22:56)
[2017-03-08 04:14] LABS: MEAN PLATELET VOLUME 7.5 fL (7.4-10.4); PLATELET COUNT 343 x10^3/uL (130-400); RED BLOOD COUNT 2.79 x10^6/uL (3.82-5.3); RED CELL DISTRIBUTION WIDTH 15.2 % (9.6-15.2)
[2017-03-08 04:27] LABS: ANION GAP 9 mmol/L (5-15); CALCIUM 8.3 mg/dL (8.5-10.1); CHLORIDE 109 mmol/L (98-107)
[2017-03-08 04:28] LABS: CREATININE 0.78 mg/dL (0.55-1.02)
[2017-03-08 04:57] LABS: BASOPHILS # (AUTO) 0.01 x10^3/uL (0-0.1); BASOPHILS % (AUTO) 0 % (0-1); EOSINOPHILS # (AUTO) 0.22 x10^3/uL (0-0.4); EOSINOPHILS % (AUTO) 2 % (1-7); LYMPHOCYTES # (AUTO) 0.76 x10^3/uL (1-3.4); LYMPHOCYTES % (AUTO) 5 % (22-44); MD SCAN; MONOCYTES % (AUTO) 10 % (2-9); NEUTROPHILS # (AUTO) 12.34 x10^3/uL (1.8-6.8); NEUTROPHILS % (AUTO) 84 % (42-75)
[2017-03-08] MEDS: FAMOTIDINE 40 MG/5 ML ORAL SUSP NG SCH ×2 (08:47→21:31)
[2017-03-08] MEDS: VALSARTAN 320 MG TABLET PO SCH (08:48)
[2017-03-08] MEDS: SENNA/DOCUSATE TABLET PO SCH (08:48)
[2017-03-08] MEDS: LEVOTHYROXINE 25 MCG TABLET PO SCH (08:49)
[2017-03-08] MEDS: METOPROLOL TARTRATE 50 MG TABLET PO SCH (08:49)
[2017-03-08] MEDS: GABAPENTIN 300 MG CAPSULE PO SCH ×2 (08:49→21:31)
[2017-03-08] MEDS: SERTRALINE 50MG TABLET PO SCH (08:49)
[2017-03-08] MEDS: AMIODARONE 200 MG TABLET PO SCH ×2 (09:37→21:31)
[2017-03-08] MEDS: FENTANYL 25 MCG PATCH TD SCH (09:43)
[2017-03-08] MEDS: CHOLESTYRAMINE LIGHT 4GM PACKET PO SCH ×2 (14:27→21:32)
[2017-03-08] MEDS: ATORVASTATIN 40 MG TABLET PO SCH (21:31)
[2017-03-08] MEDS: METOPROLOL TARTRATE 25 MG TABLET PO SCH (22:56)
[2017-03-09] MEDS: ALBUTEROL/IPRATROPIUM 2.5MG/0.5MG, 3 ML INLINE SCH ×6 (03:30→22:33)
[2017-03-09 04:11] LABS: BASOPHILS # (AUTO) 0.05 x10^3/uL (0-0.1); BASOPHILS % (AUTO) 0 % (0-1); EOSINOPHILS % (AUTO) 2 % (1-7); LYMPHOCYTES # (AUTO) 0.63 x10^3/uL (1-3.4); LYMPHOCYTES % (AUTO) 5 % (22-44); MD NO; MEAN CORPUSCULAR HEMOGLOBIN 32.8 pg (27.0-34.8); MEAN CORPUSCULAR HGB CONC 34.1 g/dL (32.4-35.8); MEAN CORPUSCULAR VOLUME 96.3 fL (80-100); MEAN PLATELET VOLUME 7.7 fL (7.4-10.4); MONOCYTES # (AUTO) 1.26 x10^3/uL (0.2-0.8); MONOCYTES % (AUTO) 10 % (2-9); NEUTROPHILS # (AUTO) 10.76 x10^3/uL (1.8-6.8); NEUTROPHILS % (AUTO) 83 % (42-75); PLATELET COUNT 353 x10^3/uL (130-400); RED CELL DISTRIBUTION WIDTH 15.1 % (9.6-15.2)
[2017-03-09 04:22] LABS: ANION GAP 6 mmol/L (5-15); CALCIUM 8.6 mg/dL (8.5-10.1); CHLORIDE 109 mmol/L (98-107)
[2017-03-09] MEDS: SENNA/DOCUSATE TABLET PO SCH (09:00)
[2017-03-09] MEDS: AMIODARONE 200 MG TABLET PO SCH ×2 (10:04→20:56)
[2017-03-09] MEDS: FAMOTIDINE 40 MG/5 ML ORAL SUSP NG SCH ×2 (10:04→20:54)
[2017-03-09] MEDS: LEVOTHYROXINE 25 MCG TABLET PO SCH (10:04)
[2017-03-09] MEDS: SERTRALINE 50MG TABLET PO SCH (10:05)
[2017-03-09] MEDS: METOPROLOL TARTRATE 50 MG TABLET PO SCH (10:05)
[2017-03-09] MEDS: VALSARTAN 320 MG TABLET PO SCH (10:05)
[2017-03-09] MEDS: CHOLESTYRAMINE LIGHT 4GM PACKET PO SCH ×2 (11:39→20:56)
[2017-03-09] MEDS: ATORVASTATIN 40 MG TABLET PO SCH (20:54)
[2017-03-09] MEDS: METOPROLOL TARTRATE 25 MG TABLET PO SCH (20:55)
[2017-03-10] MEDS: ALBUTEROL/IPRATROPIUM 2.5MG/0.5MG, 3 ML INLINE SCH ×2 (02:58→06:47)
[2017-03-10 04:19] LABS: BASOPHILS # (AUTO) 0.05 x10^3/uL (0-0.1); BASOPHILS % (AUTO) 0 % (0-1); EOSINOPHILS # (AUTO) 0.14 x10^3/uL (0-0.4); EOSINOPHILS % (AUTO) 1 % (1-7); LYMPHOCYTES # (AUTO) 0.59 x10^3/uL (1-3.4); LYMPHOCYTES % (AUTO) 4 % (22-44); MD NO; MEAN CORPUSCULAR HEMOGLOBIN 32.3 pg (27.0-34.8); MEAN CORPUSCULAR HGB CONC 33.2 g/dL (32.4-35.8); MEAN CORPUSCULAR VOLUME 97.1 fL (80-100); MEAN PLATELET VOLUME 7.3 fL (7.4-10.4); MONOCYTES # (AUTO) 1.11 x10^3/uL (0.2-0.8); MONOCYTES % (AUTO) 8 % (2-9); NEUTROPHILS % (AUTO) 87 % (42-75); PLATELET COUNT 338 x10^3/uL (130-400); RED BLOOD COUNT 2.58 x10^6/uL (3.82-5.3); RED CELL DISTRIBUTION WIDTH 15.3 % (9.6-15.2)
[2017-03-10 04:32] LABS: ANION GAP 8 mmol/L (5-15); CALCIUM 8.4 mg/dL (8.5-10.1); CHLORIDE 108 mmol/L (98-107); CREATININE 0.85 mg/dL (0.55-1.02)
[2017-03-10 04:33] LABS: TRIGLYCERIDES 90 mg/dL (50-200)
[2017-03-10] MEDS ORDERED: morphine SULFATE 10 MG/ML, 1ML IV PRN (10:30)
[2017-03-10] MEDS ORDERED: LORazepam 2 MG/ML, 1ML IV ONE (10:30)
[2017-03-10] MEDS ORDERED: morphine SULFATE 10 MG/ML, 1ML IV ONE (10:30)
[2017-03-10] MEDS: ATROPINE OPHTH SOLN 1%, 2ML PO PRN ×4 (12:25→23:01)
[2017-03-10] MEDS: LORazepam 2 MG/ML, 1ML IV PRN ×3 (15:42→18:00)
[2017-03-11] MEDS: LORazepam 2 MG/ML, 1ML IV PRN (00:31)
== END 2017-03-11 04:22 | disposition expired | DRG 23 ==
LOC: EDBD 05:42 → EDSEX 05:42 → ED 07:36 → MERGE 07:47 → EDIP 07:47 → CCU 10:57 → 3NW 03-10 11:38
PROVIDERS: ADMIT Internal Medicine; ATTEND Internal Medicine
PROC: 5A1955Z Respiratory Ventilation, Greater than 96 Consecutive Hours (ICD-10-PCS; 2017-03-01)
PROC: 0BH17EZ Insertion of Endotracheal Airway into Trachea, Via Natural or Artificial Opening (ICD-10-PCS; 2017-03-01)
PROC: 00B73ZX Excision of Cerebral Hemisphere, Percutaneous Approach, Diagnostic (ICD-10-PCS; 2017-03-01)
PROC: 00C73ZZ Extirpation of Matter from Cerebral Hemisphere, Percutaneous Approach (ICD-10-PCS; principal; 2017-03-01 07:30)
DX: I62.9 Nontraumatic intracranial hemorrhage, unspecified (principal); J96.00 Acute respiratory failure, unspecified whether with hypoxia or hypercapnia; J69.0 Pneumonitis due to inhalation of food and vomit; G93.40 Encephalopathy, unspecified; Z99.11 Dependence on respirator [ventilator] status; I48.91 Unspecified atrial fibrillation; E87.8 Other disorders of electrolyte and fluid balance, not elsewhere classified; G81.94 Hemiplegia, unspecified affecting left nondominant side; G62.9 Polyneuropathy, unspecified; J98.11 Atelectasis; R41.4 Neurologic neglect syndrome; E03.9 Hypothyroidism, unspecified; E55.9 Vitamin D deficiency, unspecified; E78.5 Hyperlipidemia, unspecified; F10.10 Alcohol abuse, uncomplicated; F32.9 Major depressive disorder, single episode, unspecified; G89.29 Other chronic pain; I10 Essential (primary) hypertension; I16.0 Hypertensive urgency; I25.10 Atherosclerotic heart disease of native coronary artery without angina pectoris; K21.9 Gastro-esophageal reflux disease without esophagitis; K64.9 Unspecified hemorrhoids; M54.30 Sciatica, unspecified side; Z51.5 Encounter for palliative care; Z80.9 Family history of malignant neoplasm, unspecified; Z83.3 Family history of diabetes mellitus; Z87.442 Personal history of urinary calculi; Z87.891 Personal history of nicotine dependence
CPT/HCPCS: 31500; 36415; 36600; 36620; 70450; 70496; 71045; 71250; 76536; 80048; 80053; 82040; 82803; 83605; 83735; 84100; 84145; 84443; 84478; 84484; 85025; 85610; 87040; 87070; 87081; 87205; 87324; 88304; 93005; 93970; 94002; 94003; 94640; 96365; 96366; 96367; 96375; C1713; J0171; J0690; J2250; J2270; J2405; J2704; J3010; J3360; J3490; J7620; Q9967; C1781; J0282; J0330; J0360; J1940; J2060; J2370; J3475; J3480; J7030; J7040; J7050; J7060; S0028